=== PATIENT | female | born 1965 | race Two or more races ===

== ENCOUNTER → 2024-12-10 | Outpatient (CLI) | payer MEDICAID, SELFPAY ==
--- NOTE | 2024-12-10 13:45 | XR_ITS ---
Examination: Screening digital mammography, bilateral Computer aided detection 3-D breast Tomosynthesis, bilateral Date and time of exam: December 10, 2024 1406 hours Compared to mammograms dating to 08/07/2014 Indication: Screening Technique: Nonmagnified MLO, CC views of the breasts to been obtained, reconstructed from 3-D Tomosynthesis images. R2 computer aided detection program utilized for evaluation of suspicious masses and/or abnormal calcifications. 3-D Tomosynthesis images obtained. Findings: Scattered areas of fibroglandular density. Benign calcifications. Interval 8 mm nodule right breast slightly inner slightly upper right breast indistinct margins Impression: BI-RADS Category 0: Incomplete: Need additional imaging evaluation Recommend follow-up spot compression views of 8mm pulmonary nodule inner upper right breast as well as right breast sonography to complete the workup
== END | disposition home or self-care (01) ==
PROVIDERS: PCP Physician Assistant; Referring Provider Physician Assistant; Visit Provider Physician Assistant
DX: Z12.31 Encounter for screening mammogram for malignant neoplasm of breast (principal); R92.8 Other abnormal and inconclusive findings on diagnostic imaging of breast; R91.1 Solitary pulmonary nodule
CPT/HCPCS: 77063; 77067